=== PATIENT | male | born 1995 | race Caucasian/White ===

== ENCOUNTER 2020-08-27 02:23 | Emergency (ER) | payer MEDICAID ==
[~2020-08-27] VITALS: Ht 190.5 cm; Wt 103.4 kg
[2020-08-27 02:26] VITALS: BP 116/79
--- NOTE | 2020-08-27 02:50 | NUR ---
TO BED AMBULATORY
--- NOTE | 2020-08-27 02:51 | NUR ---
PATIENT LEFT WITHOUT BEING SEEN BY DR. BUTTS. NO FURTHER CARE PROVIDED FOR PATIENT.
== END 2020-08-27 02:51 | disposition left against medical advice (07) ==
LOC: MED 02:23
DX: M54.2 Cervicalgia (principal); Z53.20 Procedure and treatment not carried out because of patient's decision for unspecified reasons; Z04.1 Encounter for examination and observation following transport accident